=== PATIENT | female | born 1940 | race Caucasian/White ===

== ENCOUNTER → 2016-07-20 | Outpatient (CLI) | payer MEDICARE, OTHER | END | disposition home or self-care (01) | LOC: CFH 12:33 | PROVIDERS: ATTEND Licensed Practical Nurse | DX: Z13.820 Encounter for screening for osteoporosis (principal); N95.8 Other specified menopausal and perimenopausal disorders | CPT/HCPCS: 77080 ==

== ENCOUNTER 2018-09-20 10:14 | Outpatient (CLI) | payer MEDICARE, OTHER | END 2018-09-20 23:59 | disposition home or self-care (01) | LOC: CVU 10:14 | PROVIDERS: ATTEND Nurse Practitioner | DX: I44.7 Left bundle-branch block, unspecified (principal); I35.0 Nonrheumatic aortic (valve) stenosis; I11.9 Hypertensive heart disease without heart failure; E11.9 Type 2 diabetes mellitus without complications | CPT/HCPCS: 93306 ==

== ENCOUNTER 2018-10-15 13:23 | Outpatient (CLI) | payer MEDICARE, OTHER | END 2018-10-15 23:59 | disposition home or self-care (01) | LOC: CVU 13:23 | PROVIDERS: ATTEND Nurse Practitioner | DX: R60.0 Localized edema (principal) | CPT/HCPCS: 93922 ==

== ENCOUNTER 2019-01-13 10:11 | Outpatient (CLI) | payer MEDICARE, OTHER ==
[~2019-01-13 10:11] MED LIST: ALLO100T30 PO; DULO30CA2 PO; FURO20TA3 PO; LISI1TAB19 PO; POTA10TA11 PO; SITA100T PO; TRAM50TA2 PO
[2019-01-13 13:03] LABS: CHLORIDE 103 mmol/L (98-107)
[2019-01-13 13:19] LABS: ANION GAP 11 mmol/L (5-15); CALCIUM 9.4 mg/dL (8.5-10.1); CREATININE 1.88 mg/dL (0.55-1.02)
== END 2019-01-13 23:59 | disposition home or self-care (01) ==
LOC: CFH 10:11
PROVIDERS: ATTEND Internal Medicine Cardiovascular Disease
DX: N28.9 Disorder of kidney and ureter, unspecified (principal)
CPT/HCPCS: 36415; 80048

== ENCOUNTER 2019-02-04 13:13 | Outpatient (CLI) | payer MEDICARE, OTHER | END 2019-02-04 23:59 | disposition home or self-care (01) | LOC: CVU 13:13 | PROVIDERS: ATTEND Internal Medicine Cardiovascular Disease | DX: R60.9 Edema, unspecified (principal); R06.02 Shortness of breath; E66.01 Morbid (severe) obesity due to excess calories; I10 Essential (primary) hypertension; E11.9 Type 2 diabetes mellitus without complications | CPT/HCPCS: 93970 ==

== ENCOUNTER → 2019-03-10 | Outpatient (CLI) | payer MEDICARE, OTHER ==
[~2019-03-10] MED LIST changes: +REGADENOSON 0.4 MG/5 ML SYRINGE ONE
== END | disposition home or self-care (01) ==
LOC: CFH 11:39
PROVIDERS: ATTEND Internal Medicine Cardiovascular Disease
DX: R60.9 Edema, unspecified (principal); R06.02 Shortness of breath
CPT/HCPCS: 78452; 93017; A9502; J2785

== ENCOUNTER 2019-06-25 10:38 | Outpatient (CLI) | payer MEDICARE, OTHER ==
[~2019-06-25 10:38] MED LIST changes: -REGADENOSON 0.4 MG/5 ML SYRINGE ONE
[2019-06-25 12:54] LABS: ANION GAP 10 mmol/L (5-15); CALCIUM 10.1 mg/dL (8.5-10.1); CHLORIDE 104 mmol/L (98-107)
[2019-06-25 12:56] LABS: CREATININE 1.63 mg/dL (0.55-1.02)
[2019-06-27] MEDS ORDERED: INSU100C SQ-INSULIN (12:24)
[2019-06-27] MEDS ORDERED: GABA100C PO ×2 (17:11)
[2019-06-30] MEDS ORDERED: CEFD300C37 PO (14:08)
[2019-06-30] MEDS ORDERED: AZIT500T PO (14:08)
== END 2019-06-25 23:59 | disposition home or self-care (01) ==
LOC: CFH 10:38
PROVIDERS: ATTEND Internal Medicine Nephrology
DX: N17.9 Acute kidney failure, unspecified (principal); E87.70 Fluid overload, unspecified
CPT/HCPCS: 36415; 80048; 82043; 82570